=== PATIENT | male | born 1975 | race Caucasian/White ===

== ENCOUNTER 2018-10-04 08:55 | Outpatient (CLI) | payer BC ==
--- NOTE | 2018-10-04 11:00 | ULT ---
RIGHT LOWER EXTREMITY VENOUS DOPPLER: Date: 10/04/18 PROVIDED CLINICAL HISTORY: Right leg pain. FINDINGS: Luna scale and color Doppler sonography was performed of the right common femoral, femoral, popliteal , posterior tibial, greater saphenous, and profunda femoral veins, demonstrating a normal sonographic appearance to each. Nonspecific edema-type changes are seen involving the subcutaneous tissues of th e right lower medial leg. IMPRESSION: No sonographic evidence for right lower extremity deep venous thrombosis. Findings were communicated to the ordering clinician by the centerpuncher upon completion of the examin seb. CODE CR. POS: OFF
== END 2018-10-04 08:56 | disposition home or self-care (01) ==
LOC: BICULT 08:55
PROVIDERS: ATTEND Internal Medicine Medical Oncology
DX: I82.90 Acute embolism and thrombosis of unspecified vein (principal); R60.0 Localized edema; M79.604 Pain in right leg; Z23 Encounter for immunization

== ENCOUNTER 2020-11-10 11:28 | Outpatient (CLI) | payer OTHER | END 2020-11-10 11:29 | disposition home or self-care (01) | LOC: BICRAD 11:28 | PROVIDERS: ATTEND Neurological Surgery | DX: M54.5 Low back pain (principal) | CPT/HCPCS: 72100 ==